=== PATIENT | female | born 1995 | race Caucasian/White ===

== ENCOUNTER 2018-07-18 18:51 | Emergency (ER) | payer BC ==
[~2018-07-18] VITALS: Ht 172.7 cm; Wt 63.5 kg
[~2018-07-18 18:51] MED LIST: APRESOLINE25 MG PO; ATIVAN1 MG PO; BACTRIM DS 8001 TA1 PO; BUSPAR5 MG PO; CELEXA40 MG PO; DEPO PROVER150 MG/M1 IM; DEPO PROVER150 MG/ML IM; MOTRIN600 MG PO; MOTRIN800 MG PO; PYRIDIUM200 MG PO; ZITHROMAX Z PA250 MG PO; ZOFRAN ODT4 MG PO; Zofran4 MG PO
[2018-07-18] MEDS ORDERED: ROBAXIN500 M1 PO (19:57)
[2018-07-18] MEDS ORDERED: PREDNISONE20 M1 PO (19:57)
[2018-07-18] MEDS ORDERED: NAPROSYN500 MG PO (20:48)
== END 2018-07-18 21:11 | disposition home or self-care (01) ==
LOC: ED 18:51
DX: M54.2 Cervicalgia (principal); M62.838 Other muscle spasm; Z88.0 Allergy status to penicillin; Z88.2 Allergy status to sulfonamides; Z88.1 Allergy status to other antibiotic agents; Z88.8 Allergy status to other drugs, medicaments and biological substances; Z79.899 Other long term (current) drug therapy

== ENCOUNTER 2021-06-11 18:21 | Emergency (ER) | payer BC ==
[~2021-06-11] VITALS: Ht 172.7 cm; Wt 59.0 kg
[~2021-06-11 18:21] MED LIST changes: +NAPROSYN500 MG PO; +PREDNISONE20 M1 PO; +ROBAXIN500 M1 PO
[2021-06-11] MEDS ORDERED: MIDODRINE HCL2.5 MG PO (19:22)
[2021-06-11] MEDS ORDERED: SERTRALINE HYD100 MG PO (19:22)
[2021-06-11] MEDS ORDERED: METOPROLOL SUCC50 M1 PO (19:23)
[2021-06-11] MEDS ORDERED: FLUDROCORTISON0.1 MG PO (19:23)
[2021-06-11 20:02] LABS: BILIRUBIN Negative (Negative); BLOOD Trace-Intact (Negative); CLARITY Turbid (Clear); COLOR Yellow (Yellow); GLUCOSE Negative (Negative); KETONE Trace (Negative); LEUKO ESTERASE 3+ (Negative); NITRITE Negative (Negative); PH 6.5 (4.5-8.0); SPECIFIC GRAVITY 1.025 (1.001-1.030)
[2021-06-11 20:03] LABS: BASO % 0.2 % (0.0-1.0); EOS # 0.2 10*3/uL (0.0-0.4); EOS % 1.5 % (1.0-4.0); HEMATOCRIT 42.3 % (37.0-47.0); LYMPH # 3.1 10*3/uL (1.3-4.4); LYMPH % 26.9 % (27.0-41.0); MEAN CELL VOLUME 96.8 fl (81.0-99.0); MEAN CORPUSCULAR HGB 31.1 pg (27.0-31.0); MEAN CORPUSCULAR HGB CONC 32.2 g/dl (33.0-37.0); MEAN PLATELET VOLUME 11.6 fl (9.6-12.3); MONO # 0.7 10*3/uL (0.1-1.0); MONO % 5.9 % (3.0-9.0); NEUT # 7.5 10*3/uL (2.3-7.9); NEUT % 65.3 % (47.0-73.0); PLATELET COUNT AUTOMATED 229 10*3/uL (130-400); RED BLOOD COUNT 4.37 10*6/uL (4.10-5.10); RED CELL DISTRI WIDTH 12.9 % (0-14.5); WHITE BLOOD COUNT 11.4 10*3/uL (4.8-10.8)
[2021-06-11 20:14] LABS: BACTERIA 4+; WBC TNTC wbc/hpf (0-5)
[2021-06-11 20:22] LABS: ALKALINE PHOSPHATASE 55 U/L (45-117); BUN 21 mg/dl (7-24); CHLORIDE 105 mmol/L (98-107); CREATININE 1.02 mg/dL (0.55-1.02); POTASSIUM 4.1 mmol/L (3.5-5.1); SGOT/AST 11 IU/L (3-35); SGPT/ALT 18 U/L (12-78); SODIUM 137 mmol/L (136-145); TOTAL PROTEIN 8.1 gm/dL (6.4-8.2)
[2021-06-12] MEDS ORDERED: CEPHALEXIN500 M1 PO (01:15)
== END 2021-06-12 01:15 | disposition home or self-care (01) ==
LOC: ED 18:21
PROVIDERS: Emergency Medicine
DX: N39.0 Urinary tract infection, site not specified (principal); Z88.0 Allergy status to penicillin; Z88.2 Allergy status to sulfonamides; Z88.1 Allergy status to other antibiotic agents; Z79.899 Other long term (current) drug therapy

== ENCOUNTER → 2022-01-31 | Outpatient (CLI) | payer OTHER ==
[~2022-01-31] MED LIST changes: +CEPHALEXIN500 M1 PO; +FLUDROCORTISON0.1 MG PO; +METOPROLOL SUCC50 M1 PO; +MIDODRINE HCL2.5 MG PO; +SERTRALINE HYD100 MG PO
[2022-01-31 09:52] LABS: BASO % 0.2 % (0.0-1.0); EOS # 0.2 10*3/uL (0.0-0.4); EOS % 2.9 % (1.0-4.0); HEMATOCRIT 40.6 % (37.0-47.0); LYMPH # 2.4 10*3/uL (1.3-4.4); LYMPH % 35.5 % (27.0-41.0); MEAN CELL VOLUME 95.1 fl (81.0-99.0); MEAN CORPUSCULAR HGB 32.1 pg (27.0-31.0); MEAN CORPUSCULAR HGB CONC 33.7 g/dl (33.0-37.0); MONO # 0.5 10*3/uL (0.1-1.0); MONO % 7.1 % (3.0-9.0); NEUT # 3.6 10*3/uL (2.3-7.9); NEUT % 54.1 % (47.0-73.0); PLATELET COUNT AUTOMATED 193 10*3/uL (130-400); RED BLOOD COUNT 4.27 10*6/uL (4.10-5.10); RED CELL DISTRI WIDTH 12.4 % (0-14.5); WHITE BLOOD COUNT 6.7 10*3/uL (4.8-10.8)
[2022-01-31 10:30] LABS: ALKALINE PHOSPHATASE 49 U/L (45-117); BUN 15 mg/dl (7-24); CHLORIDE 106 mmol/L (98-107); CHOLESTEROL 201 mg/dL (<200); CREATININE 0.78 mg/dL (0.55-1.02); SGOT/AST 13 IU/L (3-35); SGPT/ALT 19 U/L (12-78); SODIUM 137 mmol/L (136-145); TOTAL PROTEIN 7.9 gm/dL (6.4-8.2); TRIGLYCERIDES 138 mg/dl (<150)
[2022-01-31 10:41] LABS: LDL CHOLESTEROL 109 mg/dL (9-159)
== END | disposition home or self-care (01) ==
LOC: CARD 00:05
PROVIDERS: ATTEND Internal Medicine Cardiovascular Disease
DX: R07.9 Chest pain, unspecified (principal); R55 Syncope and collapse; R06.02 Shortness of breath; I35.8 Other nonrheumatic aortic valve disorders; M62.838 Other muscle spasm; M54.2 Cervicalgia; R00.2 Palpitations; R42 Dizziness and giddiness; Z88.0 Allergy status to penicillin

== ENCOUNTER → 2022-04-06 | Outpatient (CLI) | payer OTHER | END | disposition home or self-care (01) | LOC: CARD 02:21 | PROVIDERS: ATTEND Internal Medicine Cardiovascular Disease | DX: R06.02 Shortness of breath (principal); R55 Syncope and collapse; R00.2 Palpitations ==